=== PATIENT | female | born 1985 | race Caucasian/White ===

== ENCOUNTER 2017-12-18 15:28 | Emergency (ER) | payer SELFPAY ==
[~2017-12-18 15:28] MED LIST: AC325T PO; GFN600TCR PO; IBP600T1 PO; PREN1TAB39 PO; PREN1TAB71 PO; SULF1TAB38 PO
--- OUTSIDE RECORDS SUMMARY | 2017-12-18 15:58 | XMS REPORT | Continuity of Care Document ---
Author Author [facility] Address Unknown Phone Unavailable Allergies There is no data. Medications There is no data. Problems Date Dx Coded Attending Type Code Diagnosis Diagnosed By 07/10/2013 JOVAN ALTAMIRANO MD 372.30 CONJUNCTIVITIS UNSPECIFIED Procedures There is no data. Results There is no data. Encounters ACCT No. Visit Date/Time Discharge Status Pt. Type Provider Facility Loc./Unit Complaint [id number] 07/10/2013 10:42:00 07/10/2013 23:59:59 CLS Outpatient JOVAN ALTAMIRANO MD
--- OUTSIDE RECORDS SUMMARY | 2017-12-18 15:58 | XMS REPORT ---
Author Author PRISCILA CARLISLE Organization [employer] Address Unknown Phone Unavailable Care Team Providers Care Accounts Administrator Name Role Phone PRISCILA CARLISLE CP Unavailable Allergies, Adverse Reactions, Alerts Substance Reaction Event Type Codeine Sulfate stomach upset Drug Allergy Problems Problem Type Condition Code Onset Dates Condition Status Assessment Dental examination V72.2 Active Problem Unspecified conjunctivitis 372.30 Active Medications Medication Code System Code Instructions Start Date End Date Status Dosage Mirena [facility] [id number] not defined Procedures Procedure Coding System Code Date INTRAORL-PERIAPICAL 1 FILM 26434 CPT-4 D0220 Dec 25, 2014 BITEWING - SINGLE FILM CPT-4 D0270 Dec 25, 2014 LTD ORAL EVALUATION - PROBLEM FOCUS CPT-4 D0140 Dec 25, 2014 EXTRAC ERUPTED TOOTH/EXPOSED ROOT CPT-4 D7140 Dec 25, 2014 Vital Signs Date/Time: Dec 25, 2014 Blood Pressure Diastolic 73 mmHg Blood Pressure Systolic 113 mmHg Results No Known Results Summary Purpose [employer] Submission
--- OUTSIDE RECORDS SUMMARY | 2017-12-18 15:58 | XMS REPORT ---
Author Author CIELO DICKENS Organization [employer] Address Unknown Phone Unavailable Care Team Providers Care Charter Coordinator Name Role Phone CIELO DICKENS CP Unavailable Allergies, Adverse Reactions, Alerts Substance Reaction Event Type Codeine Sulfate stomach upset Drug Allergy Problems Problem Type Condition ICD-9 Code Onset Dates Condition Status Assessment Routine physical examination V70.0 Active Problem Unspecified conjunctivitis 372.30 Active Medications No Known Medications Procedures Procedure Coding System Code Date Office Visit, Est Pt., Level 4 CPT-4 96548 Dec 11, 2014 Vital Signs Date/Time: Dec 11, 2014 Temperature 97.1 F Weight 128.6 lbs Height 64 in BMI 22.07 Index Blood Pressure Diastolic 70 mmHg Blood Pressure Systolic 104 mmHg Cardiac Monitoring Heart Rate 70 bpm Results No Known Results Summary Purpose [employer] Submission
== END 2017-12-18 15:55 | disposition left against medical advice (07) ==
LOC: EDUNIT# 15:28 → ER 15:30
DX: M25.539 Pain in unspecified wrist (principal); W19.XXXA Unspecified fall, initial encounter

== ENCOUNTER → 2020-04-08 | Outpatient (CLI) | payer MEDICAID ==
--- NOTE | 2020-04-08 12:40 | Diagnostic Imaging Report ---
INDICATION: survey. TECHNIQUE: Multiple Real-time grayscale images were obtained over the gravid uterus. COMPARISON: None FINDINGS: There is a single live fetus in a cephalic presentation. The heart rate was recorded at 142 BPM. The placenta is posterior. The amniotic fluid volume is normal. The cervical length is 4.6 cm. The kidneys, bladder, and stomach are unremarkable. The brain is unremarkable. There is a four-chamber heart. There is a three-vessel cord with normal insertion. The spine is unremarkable. Biometrical measurements are as follows: Biparietal 4.59 cm, age 20 weeks 0 days. Head circumference 17.27 cm, age 19 weeks 6 days. Abdominal circumference 14.43 cm, age 19 weeks 6 days. Femur length 3.10 cm, age 19 weeks 5 days. Sonographic estimate age: 19 weeks 6 days. Sonographic estimated date of delivery: 08/27/20. Estimated Weight: 308 gm (+/- 45 gm). LMP percentile: 30%. heart rate: 142 beats per minute. number: 1 of 1. IMPRESSION: Single live IUP at 19 weeks 6 days gestational age. The estimated date of confinement sonographically is 08/27/2020. Dictated by: Dictated on workstation # [id number]
== END ==
LOC: RAD 10:00
PROVIDERS: ATTEND Nurse Practitioner Women's Health
DX: Z34.92 Encounter for supervision of normal pregnancy, unspecified, second trimester (principal); Z3A.19 19 weeks gestation of pregnancy
CPT/HCPCS: 76805

== ENCOUNTER 2020-06-04 14:23 | Outpatient (CLI) | payer MEDICAID ==
[~2020-06-04] VITALS: Ht 160 cm; Wt 73.8 kg
[2020-06-04 14:40] VITALS: BP 119/69
[2020-06-04 14:42] VITALS: BP 119/69
[2020-06-04 15:00] LABS: BILIRUBIN,URINE NEGATIVE (NEGATIVE); CLARITY,URINE SL CLOUDY; COLOR,URINE YELLOW; GLUCOSE, URINE (UA) NEGATIVE (NEGATIVE); KETONES,URINE NEGATIVE (NEGATIVE); LEUKOCYTE ESTERASE ,URINE NEGATIVE (NEGATIVE); NITRITE,URINE NEGATIVE (NEGATIVE); PROTEIN,URINE TRACE (NEGATIVE)
[2020-06-04] MEDS ORDERED: D5 LR IV SOLUTION 1,000 ML IV ONE (15:07)
[2020-06-04 15:20] LABS: BACTERIA,URINE TRACE /HPF; RBC,URINE TNTC /HPF; SQUAMOUS EPITHELIAL CELL,UR 25-50 /HPF
[2020-06-04 15:36] LABS: BASOPHILS % (AUTO) 0 % (0-10); EOSINOPHILS # (AUTO) 0.1 10^3/uL (0.0-0.3); EOSINOPHILS % (AUTO) 1 % (0-10); HEMATOCRIT 36 % (35-52); HEMOGLOBIN 12.1 g/dL (11.5-16.0); LYMPHOCYTES # (AUTO) 1.3 10^3/uL (1.0-4.0); LYMPHOCYTES % (AUTO) 11 % (12-44); MEAN CORPUSCULAR HEMOGLOBIN 33 pg (25-34); MEAN CORPUSCULAR HGB CONC 34 g/dL (32-36); MEAN CORPUSCULAR VOLUME 97 fL (80-99); MEAN PLATELET VOLUME 9.3 fL (9.0-12.2); MONOCYTES # (AUTO) 0.7 10^3/uL (0.0-1.0); MONOCYTES % (AUTO) 6 % (0-12); NEUTROPHILS # (AUTO) 9.8 10^3/uL (1.8-7.8); NEUTROPHILS % (AUTO) 82 % (42-75); PLATELET COUNT 210 10^3/uL (130-400); WHITE BLOOD COUNT 11.9 10^3/uL (4.3-11.0)
[2020-06-04 15:59] LABS: FERN TEST AMNIOTIC FLUID N (NEGATIVE)
[2020-06-04] MEDS ORDERED: FLU QUADRIvalent (3YOA+) 60 mcg/0.5 ml 2020-21 (AFLURIA) IM ONE (16:00)
--- NOTE | 2020-06-04 16:17 | Diagnostic Imaging Report ---
INDICATION: Vaginal bleeding The previous OB ultrasound exam performed on 04/08/2020 noted a single live intrauterine approximately 19 weeks 6 days gestation. On this exam the fetus is again identified. The fetus is cephalic in presentation. heart motion was noted with a rate of 135 bpm recorded. There were no abnormalities identified. The placenta is posterior and there is no previa. The amniotic fluid volume is within normal limits. The cervix was noted and measures 4 cm in length. There is no other abnormality to account for the patient's vaginal bleeding. The growth perimeters are fairly uniform and have progressed as expected since the prior study. The estimated weight is in the 32nd percentile. IMPRESSION: 1. There is a single live fetus approximately 28 weeks 1 day gestation +/- 1 week. EDC remains 08/27/2020. 2. There were no abnormalities otherwise identified. 3. The growth perimeters have progressed as expected since the prior exam. 4. There is no evidence for a previa and the placenta seems to be intact. There is no other cause for the patient's vaginal bleeding identified. TECHNIQUE: Multiple real-time grayscale images were obtained over the gravid uterus. COMPARISON: None FINDINGS: Biometrical measurements are as follows: Biparietal 6.87 cm, age 27 weeks 5 days. Head circumference 26 cm, age 28 weeks 2 days. Abdominal circumference 23.54 cm, age 28 weeks 0 days. Femur length 5.32 cm, age 28 weeks 2 days. Sonographic estimate age: 28 weeks 1 days. Sonographic estimated date of delivery: 08/26/20. Estimated Weight: 1162 gm (+/- 170 gm). LMP percentile: 32%. heart rate: 135 beats per minute. number: 1 of 1. Dictated by: Dictated on workstation # [id number]
[2020-06-04 17:10] VITALS: BP 117/67
[2020-06-04] MEDS: D5 LR IV SOLUTION 1,000 ML IV SCH (17:30)
[2020-06-04] MEDS ORDERED: D5 LR IV SOLUTION 1,000 ML IV SCH (17:30)
[2020-06-04] MEDS: BETAMETHASONE ACE/NA PHOS 6 MG/ML (CELESTONE SOLUSPAN) IM SCH (17:43)
[2020-06-05] MEDS: D5 LR IV SOLUTION 1,000 ML IV SCH (01:40)
[2020-06-05 02:00] VITALS: BP 96/52
[2020-06-05 06:22] LABS: BASOPHILS % (AUTO) 0 % (0-10); EOSINOPHILS % (AUTO) 0 % (0-10); HEMATOCRIT 32 % (35-52); HEMOGLOBIN 10.7 g/dL (11.5-16.0); LYMPHOCYTES # (AUTO) 1.1 10^3/uL (1.0-4.0); LYMPHOCYTES % (AUTO) 9 % (12-44); MEAN CORPUSCULAR HEMOGLOBIN 33 pg (25-34); MEAN CORPUSCULAR HGB CONC 34 g/dL (32-36); MEAN CORPUSCULAR VOLUME 98 fL (80-99); MEAN PLATELET VOLUME 9.2 fL (9.0-12.2); MONOCYTES # (AUTO) 0.4 10^3/uL (0.0-1.0); MONOCYTES % (AUTO) 3 % (0-12); NEUTROPHILS % (AUTO) 87 % (42-75); PLATELET COUNT 177 10^3/uL (130-400); WHITE BLOOD COUNT 11.5 10^3/uL (4.3-11.0)
[2020-06-05 07:40] VITALS: BP 104/62
--- NOTE | 2020-06-05 07:53 | History & Physical ---
History and Physical Date Seen by Provider: Jun 05, 2020 Time Seen by Provider: 07:48 This patient is a 35-year-old 3 para [address] of [address] Mcclain who presented yesterday afternoon with complaints of contractions and bleeding. She was trever about every 3 to 4 minutes and had persistent vaginal bleeding through the afternoon and evening. She was started on IV fluid which caused the contractions to wane quite a bit after a period of time to contractions did seem to pick back up but then gradually resolved The patient is bleeding waxed and waned in conjunction with the contraction and gradually has essentially now resolved. Nitrazine test was equivocal and suspicious for rupture of membrane however fern test on 2 occasions through the evening was negative. A wet prep was negative. Ultrasound was obtained that showed no evidence of abruption with an JONATHAN of 13 and normal parameters for at 28-week Patient's urinalysis was essentially normal and as one would expect for a clean- catch specimen with a patient who has a vaginal bleeding. Patient is white blood cell count was normal for Allergies are none Medications are vitamins HEENT exam is normal Neck is supple no lymphadenopathy no thyromegaly Abdomen is gravid soft nontender nondistended Extremities show no clubbing cyanosis. There is no Homans' sign. Pelvic exam last evening at the time of my evaluation showed blood in the vault with a seemingly increased amount of fluid however evaluation was negative for rupture of membranes and through the night the patient's discharge and bleeding and contractions have resolved Lab work is as follows Laboratory Tests Test 06/04/20 14:45 06/04/20 15:25 06/05/20 06:16 Range/Units Urine Color YELLOW Urine Clarity SL CLOUDY Urine pH 8.0 5-9 Urine Specific Steinauer 1.015 L 1.016-1.022 Urine Protein TRACE H NEGATIVE Urine Glucose (UA) NEGATIVE NEGATIVE Urine Ketones NEGATIVE NEGATIVE Urine Nitrite NEGATIVE NEGATIVE Urine Bilirubin NEGATIVE NEGATIVE Urine Urobilinogen 0.2 < = 1.0 MG/DL Urine Leukocyte Esterase NEGATIVE NEGATIVE Urine RBC (Auto) 3+ H NEGATIVE Urine RBC TNTC H /HPF Urine WBC NONE /HPF Urine Squamous Epithelial Cells 25-50 H /HPF Urine Crystals NONE /LPF Urine Bacteria TRACE /HPF Urine Casts NONE /LPF Urine Mucus NEGATIVE /LPF Urine Culture Indicated NO White Blood Count 11.9 H 11.5 H 4.3-11.0 10^3/uL Red Blood Count 3.69 L 3.24 L 3.80-5.11 10^6/uL Hemoglobin 12.1 10.7 L 11.5-16.0 g/dL Hematocrit 36 32 L 35-52 % Mean Corpuscular Volume 97 98 80-99 fL Mean Corpuscular Hemoglobin 33 33 25-34 pg Mean Corpuscular Hemoglobin Concent 34 34 32-36 g/dL Red Cell Distribution Width 12.4 12.4 10.0-14.5 % Platelet Count 210 177 130-400 10^3/uL Mean Platelet Volume 9.3 9.2 9.0-12.2 fL Immature Granulocyte % (Auto) 1 0 % Neutrophils (%) (Auto) 82 H 87 H 42-75 % Lymphocytes (%) (Auto) 11 L 9 L 12-44 % Monocytes (%) (Auto) 6 3 0-12 % Eosinophils (%) (Auto) 1 0 0-10 % Basophils (%) (Auto) 0 0 0-10 % Neutrophils # (Auto) 9.8 H 10.0 H 1.8-7.8 10^3/uL Lymphocytes # (Auto) 1.3 1.1 1.0-4.0 10^3/uL Monocytes # (Auto) 0.7 0.4 0.0-1.0 10^3/uL Eosinophils # (Auto) 0.1 0.0 0.0-0.3 10^3/uL Basophils # (Auto) 0.0 0.0 0.0-0.1 10^3/uL Immature Granulocyte # (Auto) 0.1 0.0 0.0-0.1 10^3/uL Amniotic Fluid Ferning Test N NEGATIVE Assessment and plan 28-week with contractions that have resolved, vaginal bleeding of unexplained etiology but has now resolved. Patient had received a single dose of betamethasone and we will repeat that dose prior to discharge but at this point we will outpatient home with return to clinic precautions 28-week with labor and vaginal bleeding in Allergies and Home Medications Allergies Coded Allergies: No Known Drug Allergies (Unverified , 04/02/10) Home Medications Ibuprofen 600 Mg Tab, 600 MG PO Q6H PRN, (Reported) Vit/Fe Fumarate/Fa 1 Each Tablet, 1 EACH PO DAILY, (Reported) Patient Home Medication List Home Medication List Reviewed: Yes ADRIENNE ROSS MD Jun 05, 2020 07:53
[2020-06-05] MEDS: BETAMETHASONE ACE/NA PHOS 6 MG/ML (CELESTONE SOLUSPAN) IM SCH (08:07)
== END 2020-06-05 08:15 | disposition home or self-care (01) ==
LOC: WSo 14:23 → LDRP 14:23 → WSo 06-05 08:15
PROVIDERS: ATTEND Obstetrics & Gynecology
DX: O26.853 Spotting complicating pregnancy, third trimester (principal); Z3A.28 28 weeks gestation of pregnancy
CPT/HCPCS: 76805; 81000; 85025; 87075; 87088; 87210; Q0114; 36415; 87070; 87205; 89060; 99211; G0378

== ENCOUNTER 2020-08-21 05:57 | Inpatient (IN) | payer MEDICAID ==
[2020-08-21] VITALS (79 sets, daily range): BP systolic 75–165; BP diastolic 40–84
[~2020-08-21] VITALS: Ht 162.6 cm; Wt 79.6 kg
[~2020-08-21 05:57] MED LIST changes: +mucinex; +zoloft
[2020-08-21] MEDS ORDERED: SERT25TA PO (06:03)
[2020-08-21] MEDS ORDERED: MINERAL OIL CONCENTRATE 99.9% 15 ML UDC TOP PRN (06:15)
[2020-08-21] MEDS: D5 LR IV SOLUTION 1,000 ML IV SCH ×3 (06:50→21:48)
[2020-08-21 06:53] LABS: BASOPHILS % (AUTO) 0 % (0-10); EOSINOPHILS # (AUTO) 0.1 10^3/uL (0.0-0.3); EOSINOPHILS % (AUTO) 1 % (0-10); HEMATOCRIT 35 % (35-52); HEMOGLOBIN 11.8 g/dL (11.5-16.0); LYMPHOCYTES # (AUTO) 2.4 10^3/uL (1.0-4.0); LYMPHOCYTES % (AUTO) 29 % (12-44); MEAN CORPUSCULAR HEMOGLOBIN 33 pg (25-34); MEAN CORPUSCULAR HGB CONC 34 g/dL (32-36); MEAN CORPUSCULAR VOLUME 96 fL (80-99); MEAN PLATELET VOLUME 9.7 fL (9.0-12.2); MONOCYTES # (AUTO) 0.6 10^3/uL (0.0-1.0); MONOCYTES % (AUTO) 7 % (0-12); NEUTROPHILS # (AUTO) 5.1 10^3/uL (1.8-7.8); NEUTROPHILS % (AUTO) 62 % (42-75); PLATELET COUNT 219 10^3/uL (130-400); WHITE BLOOD COUNT 8.2 10^3/uL (4.3-11.0)
[2020-08-21] MEDS ORDERED: OXYTOCIN PRE-MIX DRIP 500 ML IV ONE (07:15)
[2020-08-21] MEDS: OXYTOCIN PRE-MIX DRIP 500 ML IV SCH ×2 (07:57→22:20)
--- NOTE | 2020-08-21 08:31 | History & Physical-OB ---
OB - Chief Complaint & HPI Date/Time Date of Admission: Date of Admission: August 21, 2020 at 05:57 Date seen by a Provider: August 21, 2020 Time Seen by a Provider: 08:15 Chief Complaint/History OB-Reason for Admission/Chief: Induction of Labor Hx : 3 Hx Para: 2 Expected Date of Delivery: August 26, 2020 Gestational Age in Weeks: 39 Gestational Age in Days: 2 Admission Nurse Assessment Rev: Yes History of Labs GBS neg Allergies and Home Medications Allergies Coded Allergies: No Known Drug Allergies (Unverified , 08/20/20) Home Medications Vit/Fe Fumarate/Fa 1 Each Tablet, 1 EACH PO DAILY, (Reported) Last Action: Reviewed Sertraline HCl 25 Mg Tablet, 25 MG PO DAILY, (Reported) Last Action: New Order Patient Home Medication List Home Medication List Reviewed: Yes OB - History Hx of Present Care: Yes Ultrasounds: Normal mid trimester US Obstetrical Complications: None Medical Complications: None Obstetrical History Hx Termination: No Hx Multiple Gestation: No Hx Stillbirth: No Hx Complication: No Hx Induced Hypertens: No Hx Maternal Gestational Diabet: No Delivery History Hx Dystocia: No Hx Large For Gestational Age I: No Hx Small for Gestational Age I: No Hx Section: No Hx Vaginal Delivery Post C-Sec: No Hx Blood Disorders: No Patient Past Medical History n/a Social History/Family History 2nd Hand Smoke Exposure: Yes Immunizations Date of Influenza Vaccine: Jan 03, 2012 OB - Admission Exam Physical Exam Vitals: Vital Signs 08/21/20 08/21/20 08/21/20 06:35 07:28 08:00 Temp 36.9 Pulse 73 Resp 18 B/P (MAP) 115/73 (87) Pulse Ox 99 O2 Delivery Room Air HEENT: NCAT Heart: Rhythm Normal Lungs: Clear Abdomen: Gravid Extremities: Normal Reflexes: Normal Cervical Dilatation: 3cm Effacement: 75% Station: -1 Membranes: Intact Heart Rate: 130's Accelerations: Accelerations Present Decelerations: No Decelerations Short Term Variability: Present Penitentiary Variability: Average (6-25) Contractions on Admission: 6-10 Minutes Apart Intensity: Mild Winn Scoring Tool (Modified) Dilation (cm): 3-4cm (2) Effacement (%): 51-79% (2) Descent/Station: -1,0 (2) Cervix Consistency: Soft (2) Cervix Position: Anterior (2) Winn Score: 12 Labs Laboratory Tests Test 08/21/20 06:40 Range/Units White Blood Count 8.2 4.3-11.0 10^3/uL Red Blood Count 3.62 L 3.80-5.11 10^6/uL Hemoglobin 11.8 11.5-16.0 g/dL Hematocrit 35 35-52 % Mean Corpuscular Volume 96 80-99 fL Mean Corpuscular Hemoglobin 33 25-34 pg Mean Corpuscular Hemoglobin Concent 34 32-36 g/dL Red Cell Distribution Width 13.0 10.0-14.5 % Platelet Count 219 130-400 10^3/uL Mean Platelet Volume 9.7 9.0-12.2 fL Immature Granulocyte % (Auto) 1 % Neutrophils (%) (Auto) 62 42-75 % Lymphocytes (%) (Auto) 29 12-44 % Monocytes (%) (Auto) 7 0-12 % Eosinophils (%) (Auto) 1 0-10 % Basophils (%) (Auto) 0 0-10 % Neutrophils # (Auto) 5.1 1.8-7.8 10^3/uL Lymphocytes # (Auto) 2.4 1.0-4.0 10^3/uL Monocytes # (Auto) 0.6 0.0-1.0 10^3/uL Eosinophils # (Auto) 0.1 0.0-0.3 10^3/uL Basophils # (Auto) 0.0 0.0-0.1 10^3/uL Immature Granulocyte # (Auto) 0.0 0.0-0.1 10^3/uL OB - Assessment/Plan/Diagnosis Assessment Assessment: induction of labor Admission Dx 35 yo @ 39 weeks Elective IOL GBS neg Admission Status: Inpatient Order (span 2 midnights) Reason for Inpatient Admission: IOL at 39 weeks Plan Plan: Induction LALY GHOSH DO August 21, 2020 08:31
[2020-08-21] MEDS ORDERED: fentaNYL 2 mcg/ml BUPIVA 0.125 100 ML ONE (13:37)
[2020-08-21] MEDS ORDERED: CATHETER FLUSH 10 ML SYR IV SCH ×2 (14:00→22:00)
[2020-08-21] MEDS ORDERED: EPIDURAL (fentaNYL 2 MCG/ML BUPIVA 0.125%)100 ML BAG EPI SCH (14:45)
[2020-08-21] MEDS ORDERED: LACTATED RINGERS 1,000 ML IV SCH (14:45)
[2020-08-21] MEDS ORDERED: diphenhydrAMINE 50 MG/ML INJ (BENADRYL) IV PRN (14:45)
[2020-08-21] MEDS ORDERED: ONDANSETRON 4 MG/2 ML (SDV) Z0FRAN IV PRN (14:45)
[2020-08-21] MEDS ORDERED: NALOXONE 0.4 MG/ML 1 ML (NARCAN) VIAL IV PRN ×2 (14:45)
[2020-08-21] MEDS ORDERED: METOCLOPRAMIDE INJ 10 MG/2 ML (REGLAN) IV PRN (14:45)
[2020-08-21] MEDS ORDERED: LIDOCAINE/EPI 2% 1:200,00 (XYLOCAINE) 20 ML VIAL ONE (18:18)
[2020-08-21] MEDS ORDERED: TETANUS,DIPTH,PERTUSS P/F (BOOSTRIX) 0.5 ML VIAL IM ONE (19:00)
[2020-08-21] MEDS ORDERED: MEASLES,MUMPS,RUBELLA 1 EA INJ SQ ONE (19:00)
[2020-08-21] MEDS ORDERED: OXYTOCIN PRE-MIX DRIP 500 ML IV SCH (19:00)
[2020-08-21] MEDS ORDERED: BENZOCAINE/MENTHOL (DERMOPLAST) 56 ML CAN TP PRN (19:00)
[2020-08-21] MEDS ORDERED: DIBUCAINE 1% OINTMENT 30 GM TUBE TOP PRN (19:00)
[2020-08-21] MEDS ORDERED: WITCH HAZEL(TUCKS) 40 EA JAR TOP PRN (19:00)
--- NOTE | 2020-08-21 19:01 | OB Labor & Delivery Record ---
L&D History Date of Service Date of Service: August 21, 2020 History Expected Date of Delivery: August 26, 2020 Gestational Age in Weeks: 39 Hx : 3 Hx Para: 2 Complications Events: Routine care Operative Indications (Cesarea: N/A-Vaginal Delivery Intrapartal Events: None L&D Stage1 Stage One Onset of Labor - Date: August 21, 2020 Monitors and Tracing Monitor Mode: External Heart Rate: 125 Monitor Accelerations: Uniform Monitor Decelerations: Early Station: -1 Correction Variability: Average (6-10) Short Term Variability: Present Presentation: Vertex Vital Signs VS - Last 72 Hours, by Label 08/21/20 08/21/20 08/21/20 08/21/20 06:32 06:35 07:28 08:00 Temp 37.1 37.1 36.9 Pulse 77 77 73 Resp 18 18 18 B/P (MAP) 117/72 (87) 115/73 (87) Pulse Ox 99 O2 Delivery Room Air Room Air Room Air 08/21/20 08/21/20 08/21/20 08/21/20 08:15 08:30 08:45 09:00 Pulse 69 73 72 67 Resp 18 18 18 18 B/P (MAP) 112/68 (83) 115/68 (84) 111/65 (80) 109/65 (80) O2 Delivery Room Air Room Air Room Air Room Air 08/21/20 08/21/20 08/21/20 08/21/20 09:15 09:30 09:45 10:00 Pulse 74 72 76 73 Resp 18 18 18 18 B/P (MAP) 112/59 (76) 118/71 (87) 110/64 (79) 112/66 (81) O2 Delivery Room Air Room Air Room Air Room Air 08/21/20 08/21/20 08/21/20 08/21/20 10:15 10:45 11:00 11:15 Temp 36.6 Pulse 73 74 76 78 Resp 18 18 18 18 B/P (MAP) 110/67 (81) 108/68 (81) 108/69 (82) 109/69 (82) O2 Delivery Room Air Room Air Room Air Room Air 08/21/20 08/21/20 08/21/20 08/21/20 11:30 11:45 12:00 12:15 Pulse 75 78 77 68 Resp 18 18 18 18 B/P (MAP) 127/72 (90) 116/60 (78) 122/68 (86) 112/66 (81) O2 Delivery Room Air Room Air Room Air Room Air 08/21/20 08/21/20 08/21/20 08/21/20 12:30 12:55 13:00 13:04 Temp 36.8 Pulse 67 73 71 Resp 18 18 18 B/P (MAP) 117/65 (82) 114/66 (82) 107/59 (75) O2 Delivery Room Air Room Air Room Air 08/21/20 08/21/20 08/21/20 08/21/20 13:30 13:45 14:00 14:15 Pulse 65 68 68 71 Resp 18 18 18 18 B/P (MAP) 125/80 (95) 126/76 (93) 122/78 (93) 125/79 (94) O2 Delivery Room Air Room Air Room Air Room Air 08/21/20 08/21/20 08/21/20 08/21/20 14:20 14:23 14:26 14:30 Pulse 73 68 78 74 Resp 18 18 18 18 B/P (MAP) 115/65 (82) 117/67 (84) 118/73 (88) 111/71 (84) Pulse Ox 99 99 98 O2 Delivery Room Air Room Air Room Air Room Air 08/21/20 08/21/20 08/21/20 08/21/20 14:33 14:37 14:45 15:00 Temp 37.0 Pulse 78 72 76 78 Resp 18 18 18 18 B/P (MAP) 115/71 (86) 103/61 (75) 109/71 (84) 103/69 (80) Pulse Ox 98 97 99 O2 Delivery Room Air Room Air Room Air Room Air 08/21/20 08/21/20 08/21/20 08/21/20 15:15 15:30 15:45 16:00 Pulse 69 74 71 65 Resp 18 18 18 18 B/P (MAP) 113/56 (75) 102/60 (74) 123/55 (77) 114/72 (86) Pulse Ox 96 100 99 100 O2 Delivery Room Air Room Air Room Air Room Air 08/21/20 08/21/20 08/21/20 08/21/20 16:15 16:30 16:45 17:00 Temp 36.6 Pulse 66 70 75 80 Resp 18 18 18 18 B/P (MAP) 110/66 (81) 105/63 (77) 109/67 (81) 101/59 (73) Pulse Ox 100 100 100 99 O2 Delivery Room Air Room Air Room Air Room Air Rupture of Membranes Amniotic Membrane Rupture Time: 0802 Amniotic Membrane Fluid Desc.: Clear Vaginal Bleeding Description: Normal Show Induction/Anesthesia Epidural Cath Placement - Time: 1426 Progress/Notes Patient admitted this AM for elective IOL. AROM performed, Pitocin augmentation performed to max dose of 16mu. She progressed with epidural to complete and +2 station. L&D Stage2 Stage Two Stage II Date: August 21, 2020 Monitors and Tracing Monitor Mode: External Heart Rate: 125 Monitor Accelerations: Uniform Monitor Decelerations: Variable Umbrella Supervisor Variability: Average (6-10) Short Term Variability: Present Position: Right Occiput Anterior Presentation: Vertex Cord Descript/Complications Cord Vessel Description: 3 Vessels Delivery Type Delivery Method: Spontaneous Vaginal Anterior Shoulder: Left Episiotomy/Perineal Laceration Laceraction(s)/Extensions: No Condition of Delivery 1 minute Comment: 9 5 minute Comment: 9 Notes Live male infant weight pending Condition of Condition of : Living Exam: No Observed Abnormalities Resuscitation Resuscitation: N/A - Spontaneous Resp L&D Stage3 Stage Three Stage III Date: August 21, 2020 Pictocin Pitocin Administration mu/min: 16 Pitocin ml/hr: 16 Pitocin Administration Comment: 30 mu wide open after delivery of placenta Placenta Delivery Placenta Delivery: Spontaneous Delivery Summary Summary Estimated blood loss (mL): 300 Attending at delivery: Laly Ghosh DO Condition of Delivery Examined: Cervix Examined, Uterus Explored Post Hemorrhage: No Condition of Mother stable Condition of Infant (s) stable LALY GHOSH DO August 21, 2020 19:01
--- NOTE | 2020-08-21 19:08 | Discharge Inst-Women's Service ---
Discharge Inst-Women's Serv Depart Medication/Instructions New, Converted or Re-Newed RX: RX on Chart Final Diagnosis PPD 2 NVD Problems Reviewed?: Yes Consults/Follow Up Additional Follow Up: Yes Orders/Referrals Dr. Ghosh in 6 weeks Activity Activity: Activity as Tolerated Driving Instructions: No Driving for 1 Week NO SMOKING: NO SMOKING Nothing Inside Vagina: No Douching, No [place], No Tampons Diet Discharge Diet: No Restrictions Symptoms to Report to : Bleeding Excessive, Pain Increased, Fever Over 101 Degrees F, Vaginal Bleeding Increase, Questions/Concerns For Any Problems or Questions: Contact Your Physician LALY GHOSH DO August 21, 2020 19:08
[2020-08-21] MEDS ORDERED: IBUP-844 PO (19:09)
[2020-08-21] MEDS ORDERED: DCS100C PO (19:09)
[2020-08-21] MEDS ORDERED: ACHD5005 PO (19:09)
[2020-08-21] MEDS ORDERED: IBUPROFEN 600 MG (MOTRIN) TAB PO ONE (20:03)
[2020-08-21] MEDS: IBUPROFEN 600 MG (MOTRIN) TAB PO SCH (20:12)
[2020-08-21] MEDS ORDERED: METHYLERGONOVINE 0.2 MG/ML (METHERGINE) AMP ONE (21:21)
[2020-08-21] MEDS ORDERED: METHYLERGONOVINE 0.2 MG/ML (METHERGINE) AMP IM ONE (21:30)
[2020-08-21 21:42] LABS: BASOPHILS % (AUTO) 0 % (0-10); EOSINOPHILS % (AUTO) 0 % (0-10); HEMATOCRIT 27 % (35-52); HEMOGLOBIN 8.9 g/dL (11.5-16.0); LYMPHOCYTES # (AUTO) 0.5 10^3/uL (1.0-4.0); LYMPHOCYTES % (AUTO) 7 % (12-44); MEAN CORPUSCULAR HEMOGLOBIN 32 pg (25-34); MEAN CORPUSCULAR HGB CONC 34 g/dL (32-36); MEAN CORPUSCULAR VOLUME 96 fL (80-99); MEAN PLATELET VOLUME 9.4 fL (9.0-12.2); MONOCYTES % (AUTO) 0 % (0-12); NEUTROPHILS # (AUTO) 6.3 10^3/uL (1.8-7.8); NEUTROPHILS % (AUTO) 92 % (42-75); WHITE BLOOD COUNT 6.9 10^3/uL (4.3-11.0)
[2020-08-21 21:52] LABS: PLATELET COUNT 140 10^3/uL (130-400)
[2020-08-21] MEDS ORDERED: CARBOPROST (HEMABATE) 250 MCG/ML AMP IM ONE ×2 (22:05→22:15)
[2020-08-21] MEDS: HYDROcodone/APAP 5 MG/325 MG (LORTAB) TAB PO PRN (23:25)
[2020-08-21] MEDS ORDERED: METHYLERGONOVINE 0.2 MG (MEHTERGINE) TAB PO ONE (23:55)
[2020-08-22] VITALS (7 sets, daily range): BP systolic 102–113; BP diastolic 53–64
[2020-08-22] MEDS: OXYTOCIN PRE-MIX DRIP 500 ML IV SCH ×2 (02:10→06:26)
[2020-08-22] MEDS: IBUPROFEN 600 MG (MOTRIN) TAB PO SCH ×4 (02:10→21:55)
[2020-08-22] MEDS: HYDROcodone/APAP 5 MG/325 MG (LORTAB) TAB PO PRN (03:29)
[2020-08-22] MEDS ORDERED: METHYLERGONOVINE 0.2 MG (MEHTERGINE) TAB PO ONE (05:00)
[2020-08-22 05:35] LABS: BASOPHILS % (AUTO) 0 % (0-10); EOSINOPHILS % (AUTO) 0 % (0-10); HEMATOCRIT 23 % (35-52); HEMOGLOBIN 7.9 g/dL (11.5-16.0); LYMPHOCYTES # (AUTO) 0.4 10^3/uL (1.0-4.0); LYMPHOCYTES % (AUTO) 3 % (12-44); MEAN CORPUSCULAR HEMOGLOBIN 32 pg (25-34); MEAN CORPUSCULAR HGB CONC 34 g/dL (32-36); MEAN CORPUSCULAR VOLUME 95 fL (80-99); MEAN PLATELET VOLUME 9.6 fL (9.0-12.2); MONOCYTES # (AUTO) 0.5 10^3/uL (0.0-1.0); MONOCYTES % (AUTO) 3 % (0-12); NEUTROPHILS # (AUTO) 12.8 10^3/uL (1.8-7.8); NEUTROPHILS % (AUTO) 93 % (42-75); PLATELET COUNT 135 10^3/uL (130-400); WHITE BLOOD COUNT 13.8 10^3/uL (4.3-11.0)
[2020-08-22 06:26] LABS: BAND NEUTROPHILS 10 %; LYMPHOCYTES % (MANUAL) 1 %; MONOCYTES % (MANUAL) 5 %; NEUTROPHILS % (MANUAL) 84 %; RBC MORPH NORMAL
--- NOTE | 2020-08-22 07:17 | Postpartum Progress Note ---
Note Note Day # [] Subjective: Patient is without complaints. Ambulating, voiding. Tolerating a regular diet without nausea or vomiting. Normal lochia. Pain is well controlled with oral pain medications. She had heavy episode of PP bleeding last night, this was made under control with hemabate and methergine overnight, this morning it appears to be stable. Objective: Physical Exam: General - Alert and oriented, no apparent distress Abdomen - Soft, appropriately tender to palpation, non-distended, fundus firm at umbilicus Extremities - no edema, negative Kerri's bilaterally Assessment: PPD 1 NVD PP hemorrhage Acute blood loss anemia Plan: Routine care. Encourage breast feeding. Encourage ambulation. Ferrous sulfate supplementation, will transfuse today if symptomatic. Plan for discharge tomorrow Vitals - Labs Vital Signs - I&O Vital Signs Date Time Temp Pulse Resp B/P (MAP) Pulse Ox O2 Delivery O2 Flow Rate FiO2 08/22/20 05:29 36.3 73 18 102/64 (77) 99 08/22/20 02:10 36.4 83 18 113/53 (73) 98 08/22/20 00:06 36.6 86 18 108/59 (75) 08/21/20 23:52 90 18 115/59 (77) 08/21/20 23:36 85 18 96/62 (73) 08/21/20 23:22 89 18 88/59 (69) Room Air 08/21/20 23:07 87 18 95/65 (75) Room Air 08/21/20 22:52 90 18 106/64 (78) Room Air 08/21/20 22:36 89 18 97/59 (72) Room Air 08/21/20 22:31 86 18 99/64 (76) Room Air 08/21/20 22:26 87 18 97/54 (68) Room Air 08/21/20 22:21 93 18 104/64 (77) Room Air 08/21/20 22:16 85 18 102/63 (76) Room Air 08/21/20 22:11 87 18 106/70 (82) Room Air 08/21/20 22:06 92 18 101/60 (74) Room Air 08/21/20 22:01 85 18 94/50 (65) Room Air 08/21/20 21:56 84 18 100/63 (75) Room Air 08/21/20 21:51 81 18 102/57 (72) Room Air 08/21/20 21:46 86 18 95/58 (70) Room Air 08/21/20 21:41 37.0 86 18 95/58 (70) Room Air 08/21/20 21:36 86 18 90/54 (66) Room Air 08/21/20 21:31 85 18 84/51 (62) Room Air 08/21/20 21:26 73 18 81/46 (58) Room Air 08/21/20 21:23 78 18 75/40 (52) Room Air 08/21/20 21:17 37.3 93 18 99/53 (68) Room Air 08/21/20 21:02 99 18 117/58 (77) Room Air 08/21/20 20:47 38.2 100 18 119/65 (83) Room Air 08/21/20 20:32 95 18 114/63 (80) Room Air 08/21/20 20:17 96 18 110/60 (77) Room Air 08/21/20 19:47 38.2 101 18 123/57 (79) Room Air 08/21/20 19:32 90 18 122/58 (79) Room Air 08/21/20 19:17 37.5 107 18 120/68 (85) Room Air 08/21/20 19:03 37.3 54 18 136/62 (86) Room Air 08/21/20 18:55 37.1 106 18 165/70 (101) Room Air 08/21/20 18:34 90 18 123/77 (92) 100 Room Air 08/21/20 18:20 83 18 140/84 (102) 100 Room Air 08/21/20 18:02 77 18 109/70 (83) 100 Room Air 08/21/20 17:49 70 18 116/75 (89) 100 Room Air 08/21/20 17:34 77 18 114/73 (87) 100 Room Air 08/21/20 17:18 72 18 112/73 (86) 100 Room Air 08/21/20 17:04 36.4 08/21/20 17:00 80 18 101/59 (73) 99 Room Air 08/21/20 16:45 75 18 109/67 (81) 100 Room Air 08/21/20 16:30 70 18 105/63 (77) 100 Room Air 08/21/20 16:15 36.6 66 18 110/66 (81) 100 Room Air 08/21/20 16:00 65 18 114/72 (86) 100 Room Air 08/21/20 15:45 71 18 123/55 (77) 99 Room Air 08/21/20 15:30 74 18 102/60 (74) 100 Room Air 08/21/20 15:15 69 18 113/56 (75) 96 Room Air 08/21/20 15:00 78 18 103/69 (80) 99 Room Air 08/21/20 14:45 76 18 109/71 (84) 97 Room Air 08/21/20 14:37 72 18 103/61 (75) 98 Room Air 08/21/20 14:33 37.0 78 18 115/71 (86) Room Air 08/21/20 14:30 74 18 111/71 (84) 98 Room Air 08/21/20 14:26 78 18 118/73 (88) 99 Room Air 08/21/20 14:23 68 18 117/67 (84) Room Air 08/21/20 14:20 73 18 115/65 (82) 99 Room Air 08/21/20 14:15 71 18 125/79 (94) Room Air 08/21/20 14:00 68 18 122/78 (93) Room Air 08/21/20 13:45 68 18 126/76 (93) Room Air 08/21/20 13:30 65 18 125/80 (95) Room Air 08/21/20 13:04 36.8 08/21/20 13:00 71 18 107/59 (75) Room Air 08/21/20 12:55 73 18 114/66 (82) Room Air 08/21/20 12:30 67 18 117/65 (82) Room Air 08/21/20 12:15 68 18 112/66 (81) Room Air 08/21/20 12:00 77 18 122/68 (86) Room Air 08/21/20 11:45 78 18 116/60 (78) Room Air 08/21/20 11:30 75 18 127/72 (90) Room Air 08/21/20 11:15 78 18 109/69 (82) Room Air 08/21/20 11:00 36.6 76 18 108/69 (82) Room Air 08/21/20 10:45 74 18 108/68 (81) Room Air 08/21/20 10:15 73 18 110/67 (81) Room Air 08/21/20 10:00 73 18 112/66 (81) Room Air 08/21/20 09:45 76 18 110/64 (79) Room Air 08/21/20 09:30 72 18 118/71 (87) Room Air 08/21/20 09:15 74 18 112/59 (76) Room Air 08/21/20 09:00 67 18 109/65 (80) Room Air 08/21/20 08:45 72 18 111/65 (80) Room Air 08/21/20 08:30 73 18 115/68 (84) Room Air 08/21/20 08:15 69 18 112/68 (83) Room Air 08/21/20 08:00 73 18 115/73 (87) Room Air 08/21/20 07:28 36.9 I & O 08/22/20 07:00 Intake Total 2500 ml Balance 2500 ml Labs Laboratory Tests 08/21/20 21:36: White Blood Count 6.9, Red Blood Count 2.75L, Hemoglobin 8.9#L, Hematocrit 27L, Mean Corpuscular Volume 96, Mean Corpuscular Hemoglobin 32, Mean Corpuscular Hemoglobin Concent 34, Red Cell Distribution Width 13.0, Platelet Count 140, Mean Platelet Volume 9.4, Immature Granulocyte % (Auto) 0, Neutrophils (%) (Auto) 92H, Lymphocytes (%) (Auto) 7L, Monocytes (%) (Auto) 0, Eosinophils (%) (Auto) 0, Basophils (%) (Auto) 0, Neutrophils # (Auto) 6.3, Lymphocytes # (Auto) 0.5L, Monocytes # (Auto) 0.0, Eosinophils # (Auto) 0.0, Basophils # (Auto) 0.0, Immature Granulocyte # (Auto) 0.0, Percent Immature Platelet Fraction 2.2 08/22/20 05:24: White Blood Count 13.8H, Red Blood Count 2.46L, Hemoglobin 7.9L, Hematocrit 23L, Mean Corpuscular Volume 95, Mean Corpuscular Hemoglobin 32, Mean Corpuscular Hemoglobin Concent 34, Red Cell Distribution Width 12.8, Platelet Count 135, Mean Platelet Volume 9.6, Immature Granulocyte % (Auto) 1, Neutrophils (%) (Auto) 93H, Lymphocytes (%) (Auto) 3L, Monocytes (%) (Auto) 3, Eosinophils (%) (Auto) 0, Basophils (%) (Auto) 0, Neutrophils # (Auto) 12.8H, Lymphocytes # (Auto) 0.4L, Monocytes # (Auto) 0.5, Eosinophils # (Auto) 0.0, Basophils # (Auto) 0.0, Immature Granulocyte # (Auto) 0.1, Neutrophils % (Manual) 84, Lymphocytes % (Manual) 1, Monocytes % (Manual) 5, Band Neutrophils 10, Blood Morphology Comment NORMAL LALY GHOSH DO August 22, 2020 07:17
[2020-08-22] MEDS: DOCUSATE SODIUM 100 MG (COLACE) CAP PO SCH ×2 (08:22→20:04)
[2020-08-22] MEDS: FERROUS SULF 325 MG (IRON) TAB PO SCH ×2 (08:23→21:55)
[2020-08-22] MEDS: PRENATAL VITAMIN 1 EA TAB PO SCH (08:23)
[2020-08-22] MEDS ORDERED: FERROUS SULF 325 MG (IRON) TAB PO SCH (09:00)
[2020-08-22] MEDS ORDERED: ALPRAZolam 0.25 MG (XANAX) TAB ONE (12:24)
[2020-08-22] MEDS ORDERED: ALPRAZolam 0.25 MG (XANAX) TAB PO NR (12:30)
--- NOTE | 2020-08-22 15:16 | Anesthesia-Regional Post-Op ---
Regional Patient Condition Mental Status: Alert, Oriented x3 Circulation: Same as Pre-Op Headache: Absent Sensation: Full Recovery Motor Block: Absent Post Op Complications Complications None Follow Up Care/Instructions Patient Instructions None needed. Anesthesia/Patient Condition Patient is doing well, does C/O of a sore back which I told her is not unexpected, stable vital signs, no apparent adverse anesthesia problems. YELENA ESTRADA DO August 22, 2020 15:15
[2020-08-23 05:18] VITALS: BP 119/64
[2020-08-23] MEDS: IBUPROFEN 600 MG (MOTRIN) TAB PO SCH ×2 (05:18→09:56)
--- NOTE | 2020-08-23 06:05 | Postpartum Progress Note ---
Note Note Day # 2 Subjective: Patient is without complaints. Ambulating, voiding. Tolerating a regular diet without nausea or vomiting. Normal lochia. Pain is well controlled with oral pain medications. Asymptomatic anemia Objective: Physical Exam: General - Alert and oriented, no apparent distress Abdomen - Soft, appropriately tender to palpation, non-distended, fundus firm at umbilicus Extremities - no edema, negative Kerri's bilaterally Assessment: PPD 2 NVD Acute blood loss anemia Plan: Routine care. Encourage breast feeding. Encourage ambulation. Ferrous sulfate supplementation. Plan for discharge today Vitals - Labs Vital Signs - I&O Vital Signs Date Time Temp Pulse Resp B/P (MAP) Pulse Ox O2 Delivery O2 Flow Rate FiO2 08/23/20 05:18 36.3 86 18 119/64 (82) 100 Room Air 08/22/20 21:55 36.4 94 18 107/61 (76) 100 Room Air 08/22/20 16:01 37.1 85 18 106/60 (75) 100 Room Air 08/22/20 12:39 37.1 81 18 108/57 (74) 97 Room Air 08/22/20 08:15 37.0 78 18 106/58 (74) 98 Room Air I & O 08/23/20 07:00 Intake Total 500 ml Balance 500 ml LALY GHOSH DO August 23, 2020 06:04
[2020-08-23 09:40] VITALS: BP 105/55
[2020-08-23] MEDS: DOCUSATE SODIUM 100 MG (COLACE) CAP PO SCH (09:56)
[2020-08-23] MEDS: PRENATAL VITAMIN 1 EA TAB PO SCH (09:57)
[2020-08-23] MEDS: FERROUS SULF 325 MG (IRON) TAB PO SCH (09:57)
== END 2020-08-23 11:00 | disposition home or self-care (01) | DRG 806 ==
LOC: LDRP 05:57
PROVIDERS: ADMIT Obstetrics & Gynecology; ATTEND Obstetrics & Gynecology
PROC: 10E0XZZ Delivery of Products of Conception, External Approach (ICD-10-PCS; principal; 2020-08-21)
PROC: 10907ZC Drainage of Amniotic Fluid, Therapeutic from Products of Conception, Via Natural or Artificial Opening (ICD-10-PCS; 2020-08-21)
DX: O72.1 Other immediate postpartum hemorrhage (principal); D62 Acute posthemorrhagic anemia; Z37.0 Single live birth; O90.81 Anemia of the puerperium; Z3A.39 39 weeks gestation of pregnancy
CPT/HCPCS: 36415; 85007; 85025; 85027; 86850; 86900; 86901

== ENCOUNTER → 2020-09-16 | Outpatient (CLI) | payer MEDICAID ==
[~2020-09-16] MED LIST changes: +ACHD5005 PO; +DCS100C PO; +IBUP-844 PO; +SERT25TA PO
--- NOTE | 2020-09-16 13:49 | Diagnostic Imaging Report ---
INDICATION: Redness and warmth of the left breast. TECHNIQUE: Sonographic interrogation of the periareolar region of the left breast was performed. FINDINGS: There is an area of ill-defined hypoechogenicity with internal increased echogenicity in the periareolar slightly lateral left breast measuring 4.2 x 1.0 x 3.0 cm. There is increased vascularity along the margins and the findings could represent an early abscess formation. No other abnormalities are detected. IMPRESSION: Complex mixed echogenicity in the periareolar left breast, suspicious for an inflammatory process such as early abscess formation. Short interval followup in 4 weeks with ultrasound is recommended after a course of therapy to confirm clearing. ACR BI-RADS Category 3: Probably benign findings. Dictated by: Dictated on workstation # [id number]
== END ==
LOC: RAD 12:30
PROVIDERS: ATTEND Obstetrics & Gynecology
DX: N61.1 Abscess of the breast and nipple (principal)
CPT/HCPCS: 76642

== ENCOUNTER 2020-11-24 05:32 | Outpatient (CLI) | payer MEDICAID ==
[~2020-11-24] VITALS: Ht 162.6 cm; Wt 66.8 kg
== END 2020-11-24 11:46 | disposition home or self-care (01) ==
LOC: PREOP 05:32
PROVIDERS: ATTEND Obstetrics & Gynecology
DX: Z01.818 Encounter for other preprocedural examination (principal)

== ENCOUNTER 2020-12-01 05:58 | Day surgery (SDC) | payer MEDICAID ==
[2020-12-01] VITALS (11 sets, daily range): BP systolic 93–133; BP diastolic 47–81
[~2020-12-01] VITALS: Ht 162 cm; Wt 66.8 kg
[2020-12-01] MEDS ORDERED: metroNIDAZOLE 500MG/100ML IVPB 100 ML IV ONE (06:15)
[2020-12-01] MEDS ORDERED: ceFAZolin 2 GM IV Premixed 50 ML IV ONE (06:15)
[2020-12-01 06:32] LABS: BASOPHILS # (AUTO) 0.1 10^3/uL (0.0-0.1); BASOPHILS % (AUTO) 1 % (0-10); EOSINOPHILS # (AUTO) 0.2 10^3/uL (0.0-0.3); EOSINOPHILS % (AUTO) 3 % (0-10); HEMATOCRIT 46 % (35-52); HEMOGLOBIN 14.5 g/dL (11.5-16.0); LYMPHOCYTES # (AUTO) 3.3 10^3/uL (1.0-4.0); LYMPHOCYTES % (AUTO) 41 % (12-44); MEAN CORPUSCULAR HEMOGLOBIN 28 pg (25-34); MEAN CORPUSCULAR HGB CONC 31 g/dL (32-36); MEAN CORPUSCULAR VOLUME 88 fL (80-99); MEAN PLATELET VOLUME 9.2 fL (9.0-12.2); MONOCYTES # (AUTO) 0.7 10^3/uL (0.0-1.0); MONOCYTES % (AUTO) 8 % (0-12); NEUTROPHILS # (AUTO) 3.7 10^3/uL (1.8-7.8); NEUTROPHILS % (AUTO) 47 % (42-75); PLATELET COUNT 286 10^3/uL (130-400); WHITE BLOOD COUNT 7.9 10^3/uL (4.3-11.0)
[2020-12-01] MEDS: LACTATED RINGERS 1,000 ML IV PRN ×2 (06:57→08:33)
[2020-12-01] MEDS ORDERED: LIDOCAINE PF 2% 5 ML (XYLOCAINE) VIAL ONE (07:08)
[2020-12-01] MEDS ORDERED: ROCURONIUM 10 MG/ML 5 ML SYRINGE IV ONE (07:08)
[2020-12-01] MEDS ORDERED: proPOfol 200 MG/20 ML (DIPRIVAN) VIAL IV ONE (07:08)
[2020-12-01] MEDS ORDERED: fentaNYL INJ 100 MCG/2 ML AMP ONE (07:08)
[2020-12-01] MEDS ORDERED: ONDANSETRON 4 MG/2 ML (SDV) Z0FRAN ONE ×2 (07:08→09:49)
[2020-12-01] MEDS ORDERED: MIDAZOLAM 2 MG/2 ML (VERSED) VIAL ONE (07:08)
--- NOTE | 2020-12-01 07:16 | Progress Note-Pre Operative ---
Pre-Operative Progress Note H&P Reviewed The H&P was reviewed, patient examined and no changes noted. Date Seen by Provider: Dec 01, 2020 Time Seen by Provider: 07:05 Date H&P Reviewed: Dec 01, 2020 Time H&P Reviewed: 07:05 Pre-Operative Diagnosis: LALY JENNINGS DO Dec 01, 2020 07:16
[2020-12-01] MEDS ORDERED: BUPIVACAINE 0.25% 30 ML (SENSORCAINE) VIAL ONE (07:17)
--- NOTE | 2020-12-01 07:21 | Discharge Inst-Women's Service ---
Discharge Inst-Women's Serv Depart Medication/Instructions New, Converted or Re-Newed RX: RX on Chart Problems Reviewed?: Yes Consults/Follow Up Additional Follow Up: Yes Orders/Referrals Dr. Mcclain / Kia in 7-10 days and in 8 weeks Activity Activity: Activity as Tolerated Driving Instructions: No Driving for 1 Week NO SMOKING: NO SMOKING Nothing Inside Vagina: No Douching, No [place], No Tampons Diet Discharge Diet: No Restrictions Symptoms to Report to : Bleeding Excessive, Pain Increased, Fever Over 101 Degrees F, Vaginal Bleeding Increase, Questions/Concerns For Any Problems or Questions: Contact Your Physician Skin/Wound Care Infection Signs and Symptoms: Increased Redness, Foul Odor of Wound, Increased Drainage, Skin Itchy or Has a Rash, Increased Swelling, Temperature Above 101 F Operative Area Clean and Dry: Keep Incision Clean/Dry Stitches/Abbott/Dermabond: Dermabond, Care of Stitches Bathing Instructions: LALY Regan DO Dec 01, 2020 07:21
[2020-12-01] MEDS ORDERED: IBUP-844 PO (07:22)
[2020-12-01] MEDS ORDERED: SMT80CT PO (07:22)
[2020-12-01] MEDS ORDERED: DCS100C PO (07:22)
[2020-12-01] MEDS ORDERED: HYDR-34 PO (07:22)
[2020-12-01] MEDS ORDERED: ANTACID SUSP 30 ML UDC (MYLANTA) PO PRN (07:30)
[2020-12-01] MEDS ORDERED: DOCUSATE SODIUM 100 MG (COLACE) CAP PO PRN (07:30)
[2020-12-01] MEDS ORDERED: HYDROcodone/APAP 7.5 MG/325 MG (LORTAB, LORCET PLUS) TABLET PO PRN (07:30)
[2020-12-01] MEDS ORDERED: NALOXONE 0.4 MG/ML 1 ML (NARCAN) VIAL IV PRN (07:30)
[2020-12-01] MEDS ORDERED: SIMETHICONE 80 MG (MYLICON) CHEW PO PRN (07:30)
[2020-12-01] MEDS ORDERED: ZOLPIDEM 5 MG (AMBIEN) TAB PO PRN (07:30)
[2020-12-01] MEDS ORDERED: CHLORASEPTIC LOZENGE MM PRN (07:30)
[2020-12-01] MEDS ORDERED: ONDANSETRON 4 MG/2 ML (SDV) Z0FRAN IV PRN (07:30)
--- NOTE | 2020-12-01 08:21 | History & Physical-Surgical ---
HPO-Surgical History of Present Illness Chief Complaint: AIS Diagnosis/Surgical Indication: AIS Procedure: ROBOTIC ASSISTED TOTAL LAPAROSCOPIC HYSTERECTOMY, POSSIBLE BILATERAL SALPINGOOOPHORECTOMY Date of Surgery: Dec 01, 2020 Allergies and Home Medications Allergies Coded Allergies: No Known Drug Allergies (Unverified , 11/24/20) Home Medications Docusate Sodium 100 Mg Capsule, 100 MG PO BID PRN for CONSTIPATION-1ST LINE Prescribed by: LALY GHOSH on 12/01/20721 Hydrocodone Bit/Acetaminophen 1 Ea Tablet, 1-2 EA PO Q6HR PRN for PAIN-MODERATE (5-7) Prescribed by: LALY GHOSH on 12/01/20721 Ibuprofen 600 Mg Tablet, 600 MG PO Q6HR Prescribed by: LALY GHOSH on 12/01/20721 Sertraline HCl 25 Mg Tablet, 50 MG PO DAILY, (Reported) Last Action: Last Taken Edited Simethicone 80 Mg Tab.chew, 40 MG PO TID PRN for INDIGESTION 2ND LINE Prescribed by: LALY GHOSH on 12/01/20721 Patient Home Medication List Home Medication List Reviewed: Yes Past Zlroboi-Jhkmyp-Gselsb Hx Patient Social History 2nd Hand Smoke Exposure: No Recent Hopitalizations: Yes ([birth year]ILDBIRTH AUGUST 21, 2018) Immunizations Up To Date Date of Influenza Vaccine: Jan 03, 2012 Seasonal Allergies Seasonal Allergies: No Surgeries No Respiratory No Cardiovascular No Neurological No Reproductive System Hx Reproductive Disorders: No Sexually Transmitted Disease: Yes (HPV) Genitourinary No Gastrointestinal No Musculoskeletal No Endocrine History of Endocrine Disorders: No HEENT History of HEENT Disorders: No Cancer Yes Cervical Type of Treatment: Surgical Intervention Psychosocial History of Psychiatric Problem: No Behavioral Health Disorders: Anxiety, Depression Integumentary History of Skin or Integumenta: No Blood Transfusions History of Blood Disorders: No Exam Vital Signs Vital Signs 12/01/20 06:20 Temp 36.0 Pulse 70 Resp 18 B/P (MAP) 98/67 (77) Pulse Ox 98 O2 Delivery Room Air Capillary Refill : Labs Laboratory Tests Test 12/01/20 06:20 Range/Units White Blood Count 7.9 4.3-11.0 10^3/uL Red Blood Count 5.28 H 3.80-5.11 10^6/uL Hemoglobin 14.5 11.5-16.0 g/dL Hematocrit 46 35-52 % Mean Corpuscular Volume 88 80-99 fL Mean Corpuscular Hemoglobin 28 25-34 pg Mean Corpuscular Hemoglobin Concent 31 L 32-36 g/dL Red Cell Distribution Width 16.9 H 10.0-14.5 % Platelet Count 286 130-400 10^3/uL Mean Platelet Volume 9.2 9.0-12.2 fL Immature Granulocyte % (Auto) 0 % Neutrophils (%) (Auto) 47 42-75 % Lymphocytes (%) (Auto) 41 12-44 % Monocytes (%) (Auto) 8 0-12 % Eosinophils (%) (Auto) 3 0-10 % Basophils (%) (Auto) 1 0-10 % Neutrophils # (Auto) 3.7 1.8-7.8 10^3/uL Lymphocytes # (Auto) 3.3 1.0-4.0 10^3/uL Monocytes # (Auto) 0.7 0.0-1.0 10^3/uL Eosinophils # (Auto) 0.2 0.0-0.3 10^3/uL Basophils # (Auto) 0.1 0.0-0.1 10^3/uL Immature Granulocyte # (Auto) 0.0 0.0-0.1 10^3/uL General Appearance: Alert, Oriented X3 HEENT: Atraumatic Respiratory: Clear to Auscultation Cardiovascular: Regular Rate Abdominal: Normal Bowel Sounds Extremities: No Clubbing Skin: No Rashes Neuro: Normal Gait, Normal Speech Psych/Mental Status: Mental Status NL Assessment/Plan Assessment and Plan Plan: INGRID w/ poss BSO Admission Diagnosis 35 yo female with Adenocarcinoma Insitu of the cervix Admission Status: Observation LALY GHOSH DO Dec 01, 2020 08:21
[2020-12-01] MEDS ORDERED: GLYCOPYRROLATE 0.2 MG/ML (ROBINUL) 2 ML VIAL ONE (09:27)
[2020-12-01] MEDS ORDERED: NEOSTIGMINE 3 MG/3 ML VIAL ONE (09:27)
[2020-12-01] MEDS ORDERED: SEVOFLURANE (ULTANE) 15 ML INHAL SOLN ONE (09:34)
[2020-12-01] MEDS ORDERED: MEPERIDINE (DEMEROL) INJ 50 MG/ML IVP ONE (09:45)
[2020-12-01] MEDS ORDERED: morphine INJ 10 MG/ML 1ML (SYR OR VIAL) IVP ONE (09:45)
[2020-12-01] MEDS ORDERED: HYDROmorphone 2 MG/ML VIAL (DILAUDID) IV ONE (09:45)
[2020-12-01] MEDS ORDERED: PROMETHAZINE INJ 25 MG/ML (PHENERGAN) AMP IVP ONE (09:45)
[2020-12-01] MEDS: KETOROLAC 30 MG/ML VIAL IVP PRN ×2 (09:46→16:02)
[2020-12-01] MEDS ORDERED: KETOROLAC 30 MG/ML VIAL ONE (09:46)
[2020-12-01] MEDS ORDERED: morphine INJ 10 MG/ML 1ML (SYR OR VIAL) ONE (09:46)
[2020-12-01] MEDS: ONDANSETRON 4 MG/2 ML (SDV) Z0FRAN IVP PRN ×4 (09:49→10:59)
[2020-12-01] MEDS ORDERED: HYDROmorphone 2 MG/ML VIAL (DILAUDID) ONE (10:05)
[2020-12-01] MEDS ORDERED: IBUPROFEN 600 MG (MOTRIN) TAB PO SCH (12:00)
[2020-12-01] MEDS: LACTATED RINGERS 1,000 ML IV SCH ×2 (12:23→15:22)
[2020-12-01] MEDS ORDERED: FUROSEMIDE 40 MG/4 ML INJ (LASIX) IVP ONE (15:15)
--- NOTE | 2020-12-01 19:33 | OPERATIVE REPORT ---
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 PROCEDURES PERFORMED: Robotic-assisted total laparoscopic hysterectomy with bilateral salpingectomy. SURGEON: Jose Ghosh DO. BARKER OPERATOR: Kia Ram DNP, was necessary for manipulation and retraction throughout the procedure. ANESTHESIA: General endotracheal. ESTIMATED BLOOD LOSS: Minimal. URINE OUTPUT: 40 mL clear at the end of the procedure. FLUIDS: 1400 mL of lactated Ringer's solution. FINDINGS: Grossly normal appearing uterus, bilateral fallopian tubes and ovaries. Intact IUD removed at the start of the procedure. SPECIMEN SENT: Uterus and bilateral fallopian tubes. INDICATIONS FOR PROCEDURE: This 35-year-old female is a patient, who had sought care in my office. Her evaluation involved an abnormal Pap smear, which the followup colposcopy revealed adenocarcinoma in situ on endocervical biopsy. I discussed with the patient proceeding with cold knife conization versus proceeding with a hysterectomy. The patient has completed childbearing and was going to explore tubal ligation if I had not discussed hysterectomy, which she wished to proceed with hysterectomy. Risks of the procedure were discussed with the patient in detail including risk of bleeding, infection, damage to surrounding structures including, but not limited to bowel, bladder, ureter, kidneys, possible need for operation, postoperative complications that may occur, recovery timeframe, risk from anesthesia, hospital stay and even . After everything was discussed with the patient in detail and consent was obtained in the preoperative area, the patient was taken to the operating room. OPERATIVE REPORT IN DETAIL: Once in the operating room, general anesthesia was found to be adequate. She was placed in the dorsal lithotomy position, prepped and draped in a normal sterile fashion. Timeout was performed. A Berman catheter was placed using sterile technique. A weighted speculum inserted to the patient's vagina. Right angle retractor was used to visualize the cervix, which was grasped at 12 o'clock position using a long Allis clamp. I then placed a 0 Vicryl suture through the anterior lip of the cervix. I removed my Allis clamp and used the suture as my retraction point. I then gently sounded the uterine cavity, depth was found to be 8 cm. I then selected an 8 cm Lisa uterine manipulator tip and 3.5 cm colpotomy ring. I advanced the manipulator tip into the uterus deploying the balloon and the colpotomy ring around the vaginal fornix. At that point, I removed all the instruments from the patient's vagina. I performed a change of gloves, took my attention to the abdomen, where a fingerbreadth below the costal margin on the left at the midclavicular line, I inserted a Veress needle and intraperitoneal placement was confirmed using saline drop test. I then proceeded with insufflation using CO2 gas and opening pressure of 2 mmHg was noted. I proceeded to a maximum pressure of 15 mmHg, at which point, I made an 8 mm incision infraumbilically with a knife and directed a da Cher camera trocar through the incision, intraperitoneal placement was confirmed using the da Cher laparoscope. I then scanned the upper abdominal anatomy and it was found to be grossly normal. The insertion site for the Veress was noted and there was no evidence of damage upon my entry. Therefore, I removed the Veress needle. I then had the patient placed in a steep Trendelenburg and I visualized all my pelvic anatomy as defined in my findings above. I placed two lateral trocars approximately 8 cm lateral to my infraumbilical trocar. These were both 8 mm trocars. The skin incisions were made with a knife and the trocars were placed under direct visualization of the laparoscope. Once these were both in place, I brought in the da Cher robot and docked in appropriate fashion placing the SynchroSeal in the left hand and monopolar angeline in the right hand. I took my place at the operative console and performed the following dissection bilaterally. Starting at the uteroovarian ligament, I sealed and transected using the SynchroSeal. I then created a window in the mesosalpinx and sealed and transected down the mesosalpinx amputating the fallopian tube from its surrounding blood supply using the SynchroSeal device. I then grasped the round ligament, which I sealed and transected using the SynchroSeal device. I then grasped the entire broad ligament, which I sealed and transected using the SynchroSeal device until I reached the level of the lower uterine segment, at which point, I the anterior and posterior leaflets of the broad ligament. The anterior leaflet dissection was taken around the anterior vaginal fornix and posterior leaflets was taken around the posterior vaginal fornix. This allowed me to skeletonize the uterine vessels laterally and dissected the ureter away from my dissection plane. I then sealed and transected the uterine arteries using the SynchroSeal. I created a colpotomy at 12 o'clock position using monopolar angeline and took this circumferentially around the vaginal fornix amputating the cervix away from the vagina. The entire specimen was then removed through the vagina. I then closed the lateral vaginal apices of the cuff using 2-0 Vicryl suture in a [id number] fashion colposuspending them to the uterosacral ligaments. I then closed the remainder of the vaginal cuff using 2-0 V-Loc in a running fashion, after which there was no active bleeding noted from any of my dissection planes. Bilateral ureteral peristalsis was identified and have stayed clear of my dissection planes as well. I then undocked the da Cher robot and proceeded with the remainder of the case laparoscopically. I copiously irrigated the pelvis using normal saline. Once again, there was no active bleeding noted from any of my dissection planes. I placed Surgiflo hemostatic agent over all my planes of dissection to ensure excellent postoperative hemostasis and then had the patient taken out of steep Trendelenburg, where I removed the lateral trocars under direct visualization of the laparoscope and infraumbilical trocars left in place to release the remainder of the insufflation and to introduce 10 mL of 0.25% Marcaine into the peritoneal cavity for postoperative pain management. I then removed this trocar as well. The skin was reapproximated using 4-0 Monocryl in interrupted subcuticular stitches. Dermabond was applied to incision and Band-Aids were placed over the incisions as well. The patient tolerated the procedure well and sent to recovery area in a stable condition. Lap and sponge counts were correct at the end of the procedure. Instrument counts were correct as well. Two grams of Ancef, 500 mg of Flagyl were given preoperatively for infection prophylaxis. Job ID: [id number] DocumentID: [id number] Dictated Date: 12/01/2020 10:54:21 Salesforce Trainer Date: 12/01/2020 19:31:34 Dictated By: JOSE GHOSH DO
--- NOTE | 2020-12-02 07:39 | Anesthesia-General Post-Op ---
General Patient Condition Mental Status/LOC: Same as Preop Cardiovascular: Satisfactory Nausea/Vomiting: Absent Respiratory: Satisfactory Pain: Controlled Complications: Absent Post Op Complications Complications None Follow Up Care/Instructions Patient Instructions None needed. Anesthesia/Patient Condition Patient Condition Patient is doing well, no complaints, stable vital signs, no apparent adverse anesthesia problems. No complications reported per nursing. GLENDY GEORGE CRNA Dec 02, 2020 07:39
== END 2020-12-01 17:50 | disposition home or self-care (01) ==
LOC: SDC 05:58 → WS 10:47 → SDC 17:50
PROVIDERS: ATTEND Obstetrics & Gynecology
DX: D06.9 Carcinoma in situ of cervix, unspecified (principal); N80.0 Endometriosis of uterus; F17.210 Nicotine dependence, cigarettes, uncomplicated; F41.9 Anxiety disorder, unspecified; F32.9 Major depressive disorder, single episode, unspecified; Z79.891 Long term (current) use of opiate analgesic; Z79.899 Other long term (current) drug therapy; Z79.1 Long term (current) use of non-steroidal anti-inflammatories (NSAID)
CPT/HCPCS: 36415; 84703; 85025; 86850; 86900; 86901; 87081; 94664

== ENCOUNTER 2020-12-08 10:59 | Emergency (ER) | payer MEDICAID ==
[~2020-12-08] VITALS: Ht 162.6 cm; Wt 66.7 kg
[~2020-12-08 10:59] MED LIST changes: +HYDR-34 PO; +SMT80CT PO
--- NOTE | 2020-12-08 11:29 | ED Upper Extremity ---
General Chief Complaint: Laceration Stated Complaint: L THUMB LAC Source: patient Exam Limitations: no limitations History of Present Illness Date Seen by Provider: Dec 08, 2020 Time Seen by Provider: 11:20 Initial Comments This is a well-appearing 35-year-old female who presents to the ER with complaints of left thumb laceration while opening a can of biscuits. States when she was pulling on the can it slipped and sliced through the volar aspect of her left thumb. Applied direct pressure to staunch bleeding. Presented to ER for further treatment. Tetanus is up-to-date, last given this year before of her daughter. Allergies and Home Medications Allergies Coded Allergies: No Known Drug Allergies (Unverified , 11/24/20) Patient Home Medication List Home Medication List Reviewed: Yes Docusate Sodium (Dok) 100 Mg Capsule, 100 MG PO BID PRN for CONSTIPATION-1ST LINE Prescribed by: LALY GHOSH on 12/01/20721 Hydrocodone Bit/Acetaminophen (HYDROcodone/APAP 7.5/325 TAB) 1 Ea Tablet, 1-2 EA PO Q6HR PRN for PAIN-MODERATE (5-7) Prescribed by: LALY GHOSH on 12/01/20721 Ibuprofen (Ibu) 600 Mg Tablet, 600 MG PO Q6HR Prescribed by: LALY GHOSH on 12/01/20721 Sertraline HCl (Zoloft) 25 Mg Tablet, 50 MG PO DAILY, (Reported) Entered as Reported by: PJ TOBIAS on 08/21/20 06 Simethicone (Mi-Acid) 80 Mg Tab.chew, 40 MG PO TID PRN for INDIGESTION 2ND LINE Prescribed by: LALY GHOSH on 12/01/20721 Review of Systems Constitutional: no symptoms reported Musculoskeletal: no symptoms reported Skin: see HPI Past Rgcbkwh-Ngygel-Wlhdci Hx Patient Social History Tobacco Use?: Yes Tobacco type used: Cigarettes Smoking Status: Current Everyday Smoker Use of E-Cig and/or Vaping dev: No Substance use?: No Alcohol Use?: Yes Alcohol Frequency: Once in a while Immunizations Up To Date First/Initial COVID19 Vaccinat: NOVEMBER 15 2020 Second COVID19 Vaccination Ra: NOVEMBER 15 2020 Seasonal Allergies Seasonal Allergies: No Past Medical History Surgery/Hospitalization HX: HYSTERECTOMY ON TUESDAY Surgeries: No Respiratory: No Currently Using CPAP: No Currently Using BIPAP: No Cardiac: No Neurological: No Reproductive Disorders: No Sexually Transmitted Disease: Yes (HPV) Genitourinary: No Gastrointestinal: No Musculoskeletal: No Endocrine: No HEENT: No Cancer: Yes Cervical What Type of Treatment Did You: Surgical Intervention Psychosocial: No Anxiety, Depression Integumentary: No Blood Disorders: No Physical Exam Vital Signs Vital Signs - First Documented 12/08/20 11:03 Temp 36.9 Pulse 109 Resp 18 B/P (MAP) 116/77 (90) Pulse Ox 99 O2 Delivery Room Air Capillary Refill : Height, Weight, BMI Height: '" Weight: lbs. oz. kg; 25.45 BMI Method:Stated General Appearance: WD/WN, no apparent distress HEENT: PERRL/EOMI, normal ENT inspection Neck: full range of motion, normal inspection Cardiovascular: regular rate, rhythm, no murmur Respiratory: lungs clear, normal breath sounds Elbow/Forearm: normal inspection, non-tender, no evidence of injury Wrist: Yes normal inspection, Yes non-tender, Yes no evidence of injury Hand: Left, laceration (2.5 cm laceration along volar aspect of proximal left thumb.Negative tendon involvement. Negative arterial involvement.Full range of motion.Neurovascular intact.) Neurologic/Psychiatric: no motor/sensory deficits, alert, normal mood/affect, oriented x 3 Skin: normal color, warm/dry Procedures/Interventions Wound Location: Upper Extremities Other Wound Location left volar thumb Wound's Depth, Shape: linear Wound Explored: clean Irrigated w/ Saline (ccs): 50 Betadine Prep?: Yes Anesthesia: 1% Lidocaine Volume Anesthetic (ccs): 3 Suture: Ethlion Suture Size: 4-0 Number of Sutures: 5 Layer Closure?: 1 Progress Area cleansed with saline. Irrigated with 50ml NS. Perform digital block with lidocaine 1%. Tolerated well. Approximated area with 5 sutures. Covered with Adaptic and 4 x 4. Progress/Results/Core Measures Results/Orders My Orders Orders - BOLIVAR PATEL APRN Lidocaine 1% Inj 20 Ml (Xylocaine 1% Inj (12/08/20 12:00) Lidocaine 1% Inj 20 Ml (Xylocaine 1% Inj (12/08/20 11:46) Medications Given in ED Current Medications Medications Dose Ordered Sig/Mariam Route Start Time Stop Time Status Last Admin Dose Admin Lidocaine HCl 20 ml ONCE ONCE INJ 12/08/20 12:00 12/08/20 12:01 DC 12/08/20 11:52 20 ML Vital Signs/I&O 12/08/20 12/08/20 11:03 12:25 Temp 36.9 Pulse 109 72 Resp 18 18 B/P (MAP) 116/77 (90) 112/72 Pulse Ox 99 100 O2 Delivery Room Air Room Air Progress Progress Note : Progress Note Discharge plan of care reviewed and she is agreeable with plan. Departure Impression Primary Impression: Laceration of left thumb Disposition: HOME, SELF-CARE Condition: Improved Departure-Patient Inst. Decision time for Depature: 12:18 Referrals: NO,LOCAL PHYSICIAN (PCP/Family) Primary Care Physician Patient Instructions: Laceration Repair With Stitches ED Add. Discharge Instructions: Plan: 1. Keep hand elevated above your heart as much as possible for the next 72 hours to reduce swelling. 2. Change dressing if soiled. Keep covered for next 72 hours. Then may leave open to air after. Cover if working with soiled material. 3. May take Tylenol or Ibuprofen as needed for pain per package. 4. Do not soak or swim with sutures intact. May wash with running water and mild soap and water. Pat dry. 5. Return in 7-10 days to have sutures removed. 6. Monitor for signs of infection: redness, swelling, yellow/green drainage. Follow up with your doctor or return if symptoms develop. 7. Return for any new, concerning, or worsening symptoms. All discharge instructions reviewed with patient and/or family. Voiced understanding. BOLIVAR PATEL [employer] Dec 08, 2020 11:29
[2020-12-08] MEDS ORDERED: LIDOCAINE 1% INJ 20 ML 20 ML VIAL ONE (11:46)
[2020-12-08] MEDS ORDERED: LIDOCAINE 1% INJ 20 ML 20 ML VIAL INJ ONE (12:00)
[2020-12-08 12:25] VITALS: BP 112/72
== END 2020-12-08 12:25 | disposition home or self-care (01) ==
LOC: EDUNIT# 10:59 → ER 11:01
DX: S61.012A Laceration without foreign body of left thumb without damage to nail, initial encounter (principal); F41.9 Anxiety disorder, unspecified; F32.9 Major depressive disorder, single episode, unspecified; F17.210 Nicotine dependence, cigarettes, uncomplicated; Z79.899 Other long term (current) drug therapy; W26.8XXA Contact with other sharp object(s), not elsewhere classified, initial encounter
CPT/HCPCS: 12001